=== PATIENT | female | born 1970 | race Caucasian/White ===

== ENCOUNTER 2016-07-31 20:36 | Inpatient (IN) | payer SELFPAY ==
[~2016-07-31] VITALS: Ht 162.6 cm; Wt 85.0 kg
[2016-07-31] MEDS ORDERED: LISD50CA PO (20:45)
[2016-07-31] MEDS ORDERED: ALPR-392 MT (20:46)
[2016-07-31 21:02] LABS: BASOPHILS % 0.3 % (0.0-2.0); EOSINOPHILS % 0.7 % (0.0-5.0); HEMATOCRIT. 50.5 % (36.0-48.0); HEMOGLOBIN. 16.8 g/dL (12.0-16.0); LYMPHOCYTES % 16.3 % (20.0-50.0); MEAN CORPUSCULAR HEMOGLOBIN 29.1 pg (28.0-32.0); MEAN CORPUSCULAR VOLUME 87.5 fL (81.0-99.0); MEAN PLATELET VOLUME 8.2 fl (7.4-10.4); NEUTROPHILS % 78.7 % (40.0-76.0); PLATELET 231 x1000/uL (130-400); RED BLOOD CELL COUNT 5.77 mill/uL (4.2-5.4); RED CELL DISTRIBUTION WIDTH 13.7 % (11.6-14.6)
[2016-07-31 21:10] LABS: PROTHROMBIN TIME 10.7 sec
[2016-07-31 21:12] LABS: CARBON DIOXIDE 23 mEq/L (21-32); CHLORIDE 103 mEq/L (98-107)
[2016-07-31 21:14] LABS: ETHANOL BLOOD < 10 mg/dL
[2016-07-31] MEDS ORDERED: ONDANSETRON HCL 4MG/2ML VIAL IV ONE (21:15)
[2016-07-31 21:19] LABS: TROPONIN I 0.28 ng/mL (0.00-0.04)
[2016-07-31] MEDS ORDERED: SODIUM CHLORIDE 0.9% 1,000 ML IV ONE (21:30)
[2016-07-31 21:54] LABS: BG BASE EXCESS -6.5 mmol/L (-2.0-2.0); BG CARBOXYHEMOGLOBIN 0.1 % (0.5-1.5); BG DEOXYHEMOGLOBIN 1.9 % (0.0-5.0); BG FRACTION INSPIRED OXYGEN 36; BG HCO3 ACT 17.8 mmol/L (22.0-26.0); BG METHEMOGLOBIN 0.2 % (0.0-1.5); BG OXYGEN SATURATION 98.1 % (92.0-98.5); BG OXYHEMOGLOBIN 97.8 % (94.0-97.0); BG PCO2 32.3 mmHg (35.0-45.0); BG PH 7.358 (7.350-7.450); BG PO2 131.1 mmHg (75.0-100.0); BG SAMPLE SITE RIGHT BRACHIAL; BG TOTAL HEMOGLOBIN 15.1 g/dL (12.0-18.0); BG VENT MODE NASAL CANNULA
[2016-07-31] MEDS ORDERED: KETOROLAC 30MG/ML VIAL IV ONE (23:45)
[2016-07-31] MEDS ORDERED: SODIUM CHLORIDE 0.9% 500 ML IV ONE (23:45)
[2016-08-01] VITALS (29 sets, daily range): BP systolic 27–162; BP diastolic 18–133
[2016-08-01] MEDS ORDERED: HEPARIN 5000 UNITS/ML VIAL IV ONE
[2016-08-01] MEDS ORDERED: MORPHINE SULFATE 4 MG/ML CPJ (NOT FOR IM USE) IV STA (00:15)
[2016-08-01] MEDS ORDERED: SODIUM CHLORIDE 0.9% 1,000 ML IV ONE (00:15)
[2016-08-01] MEDS ORDERED: HEPARIN 25,000 UNITS PREMIX 500 ML IV SCH ×3 (00:30→08:45)
[2016-08-01 01:30] LABS: INR 1.3; PROTHROMBIN TIME 13.2 sec
[2016-08-01 01:38] LABS: *BARBITURATES SCREEN URINE NEGATIVE (NEGATIVE); *BENZODIAZEPINES SCREEN URINE NEGATIVE (NEGATIVE); *COCAINE SCREEN URINE NEGATIVE (NEGATIVE); CANNABINOID URINE SCREEN NEGATIVE (NEGATIVE); METHADONE URINE SCREEN NEGATIVE (NEGATIVE); OPIATES URINE SCREEN NEGATIVE (NEGATIVE); PHENCYCLIDINE URINE SCREEN NEGATIVE (NEGATIVE)
[2016-08-01 01:43] LABS: PARTIAL THROMBOPLASTIN TIME 102.5 sec (24.0-34.0)
[2016-08-01 02:58] LABS: *AMPHETAMINES SCREEN URINE PRESUMTIVE POSITIVE (NEGATIVE)
[2016-08-01] MEDS ORDERED: ONDANSETRON HCL 4MG/2ML VIAL IV PRN (03:00)
[2016-08-01] MEDS ORDERED: DEXT 5%/0.45% NACL 1,000 ML IV SCH (03:00)
[2016-08-01] MEDS ORDERED: ACETAMINOPHEN 325MG TABLET PO PRN (03:00)
[2016-08-01] MEDS: MORPHINE SULFATE 2 MG/ML CPJ (NOT FOR IM USE) IV PRN ×2 (03:26→07:44)
[2016-08-01 04:00] LABS: INR 1.3; PARTIAL THROMBOPLASTIN TIME 57.5 sec (24.0-34.0)
[2016-08-01] MEDS: IPRATROPIUM/ALBUTEROL 0.5-3(2.5)MG/3ML NEB HHN SCH ×2 (04:19→09:05)
[2016-08-01] MEDS ORDERED: SODIUM CHLORIDE 0.9% 1000ML BAG (SEPSIS BOLUS) IV NR (05:15)
[2016-08-01 05:30] LABS: HEMOGLOBIN 16.3 g/dL (12.0-16.0); MEAN CORPUSCULAR HEMOGLOBIN 29.6 pg (28.0-32.0); MEAN CORPUSCULAR VOLUME 90.6 fL (81.0-99.0); PLATELET 136 x1000/uL (130-400); RED BLOOD CELL COUNT 5.52 mill/uL (4.2-5.4); RED CELL DISTRIBUTION WIDTH 14.2 % (11.6-14.6)
[2016-08-01] MEDS ORDERED: CEFTRIAXONE 1 G PREMIX 50 ML IV SCH ×2 (06:00→08:30)
[2016-08-01] MEDS ORDERED: LIDOCAINE HCL/PF 1% 2ML VIAL ONE (06:48)
[2016-08-01 07:43] LABS: BG BASE EXCESS -21.2 mmol/L (-2.0-2.0); BG CARBOXYHEMOGLOBIN 0.3 % (0.5-1.5); BG DEOXYHEMOGLOBIN 7.8 % (0.0-5.0); BG HCO3 ACT 7.6 mmol/L (22.0-26.0); BG METHEMOGLOBIN 0.3 % (0.0-1.5); BG OXYGEN SATURATION 92.2 % (92.0-98.5); BG OXYHEMOGLOBIN 91.6 % (94.0-97.0); BG PCO2 27.1 mmHg (35.0-45.0); BG PH 7.065 (7.350-7.450); BG PO2 87.3 mmHg (75.0-100.0); BG SAMPLE SITE RIGHT FEMORAL; BG TOTAL HEMOGLOBIN 18.3 g/dL (12.0-18.0); BG VENT MODE NASAL CANNULA
[2016-08-01] MEDS ORDERED: SODIUM BICARBONATE 8.4% 1 MEQ/ML 50ML SYR IV ONE (08:00)
[2016-08-01] MEDS ORDERED: SODIUM BICARBONATE 8.4% 1 MEQ/ML 50ML SYR IV NR ×2 (08:12→08:13)
[2016-08-01] MEDS ORDERED: NOREPINEPHRINE 8 MG in DEXT 5% WATER 242 ML IV PRN (08:15)
[2016-08-01] MEDS ORDERED: SODIUM CHLORIDE 0.9% 500 ML IV ONE (08:30)
[2016-08-01 08:44] LABS: BG CARBOXYHEMOGLOBIN 0.3 % (0.5-1.5); BG DEOXYHEMOGLOBIN 4.1 % (0.0-5.0); BG HCO3 ACT 12.6 mmol/L (22.0-26.0); BG METHEMOGLOBIN 0.3 % (0.0-1.5); BG OXYGEN SATURATION 95.9 % (92.0-98.5); BG OXYHEMOGLOBIN 95.3 % (94.0-97.0); BG PCO2 52.3 mmHg (35.0-45.0); BG PH 6.999 (7.350-7.450); BG PO2 117.3 mmHg (75.0-100.0); BG SAMPLE SITE RIGHT BRACHIAL; BG TIDAL VOLUME(mL) 500 mL; BG TOTAL HEMOGLOBIN 15.9 g/dL (12.0-18.0); BG VENT MODE VENT - A/C; BG VENT RATE 12 set
[2016-08-01] MEDS ORDERED: HEPARIN BOLUS PRN aPTT <36 IV (08:45)
[2016-08-01] MEDS ORDERED: HEPARIN BOLUS PRN aPTT 37-44 IV (08:45)
[2016-08-01] MEDS ORDERED: MIDAZOLAM HCL 50 MG in DEXTROSE 5% WATER 40 ML IV PRN (08:45)
[2016-08-01] MEDS ORDERED: LORAZEPAM 2MG/ML CPJ ONE (08:59)
[2016-08-01] MEDS ORDERED: SODIUM BICARBONATE 7.5% 0.9 MEQ/ML 50ML SYR IV ONE ×2 (09:00)
[2016-08-01] MEDS ORDERED: SUCCINYLCHOLINE CHLORIDE 200MG/10ML VIAL IV ONE (09:00)
[2016-08-01] MEDS ORDERED: EPINEPHRINE 0.1MG/ML (1:10,000) 10ML SYR ONE ×3 (09:00)
[2016-08-01] MEDS ORDERED: LORAZEPAM 2MG/ML CPJ IV PRN (09:00)
[2016-08-01] MEDS ORDERED: ETOMIDATE 2MG/ML 10ML VIAL IV ONE (09:00)
[2016-08-01] MEDS ORDERED: DOPAMINE 400MG IN DEXT 5% 250ML PREMIX IV ONE (09:00)
[2016-08-01] MEDS ORDERED: PANTOPRAZOLE SODIUM 40 MG/VIAL IV SCH (09:00)
[2016-08-01] MEDS ORDERED: ATROPINE SULFATE 1MG/10ML SYR ONE (09:00)
[2016-08-01] MEDS ORDERED: SODIUM BICARBONATE 100 MEQ in DEXT 5%/0.45% NACL 1000ML 1,000 ML IV SCH (09:30)
[2016-08-01] MEDS ORDERED: DEXT 5%/0.9% NACL 1,000 ML IV SCH (10:00)
[2016-08-01] MEDS ORDERED: IOHEXOL-350 100 ML BOTTLE ONE (10:00)
[2016-08-01] MEDS ORDERED: PHENYLEPHRINE 40 MG in DEXT 5% WATER 246 ML IV PRN (10:00)
[2016-08-01] MEDS ORDERED: SODIUM CHLORIDE 0.9% 10ML VIAL ONE (10:00)
[2016-08-01] MEDS ORDERED: EPINEPHRINE 4 MG in SODIUM CHLORIDE 0.9% 246 ML IV PRN (10:15)
[2016-08-01] MEDS ORDERED: DOPAMINE 400MG PREMIX 250 ML IV PRN (10:15)
[2016-08-01 10:32] LABS: INR 2.2
[2016-08-01 11:32] LABS: PARTIAL THROMBOPLASTIN TIME > 200.0 sec (24.0-34.0)
[2016-08-01] MEDS ORDERED: SODIUM BICARBONATE 100 MEQ in DEXT 5%/0.9% NACL 1,000 ML IV SCH (14:00)
== END 2016-08-01 10:30 | disposition expired | DRG 134 ==
LOC: ER 20:53 → MICUSO 08-01 00:40 → ENRESERV 08-01 01:05
PROVIDERS: ADMIT Internal Medicine Geriatric Medicine; ATTEND Internal Medicine Geriatric Medicine
PROC: 5A1935Z Respiratory Ventilation, Less than 24 Consecutive Hours (ICD-10-PCS; principal; 2016-08-01)
PROC: 0BH17EZ Insertion of Endotracheal Airway into Trachea, Via Natural or Artificial Opening (ICD-10-PCS; 2016-08-01)
PROC: 02HV33Z Insertion of Infusion Device into Superior Vena Cava, Percutaneous Approach (ICD-10-PCS; 2016-08-01)
PROC: B548ZZA Ultrasonography of Superior Vena Cava, Guidance (ICD-10-PCS; 2016-08-01)
DX: I26.99 Other pulmonary embolism without acute cor pulmonale (principal); J96.00 Acute respiratory failure, unspecified whether with hypoxia or hypercapnia; I46.9 Cardiac arrest, cause unspecified; N17.9 Acute kidney failure, unspecified; I95.9 Hypotension, unspecified; E87.2 Acidosis; D72.829 Elevated white blood cell count, unspecified; F41.1 Generalized anxiety disorder; F90.9 Attention-deficit hyperactivity disorder, unspecified type; R00.0 Tachycardia, unspecified; R73.9 Hyperglycemia, unspecified; R74.8 Abnormal levels of other serum enzymes
CPT/HCPCS: 31500; 36415; 36569; 36600; 71010; 71275; 74176; 76937; 80048; 80053; 80305; 82375; 82805; 82962; 83036; 83735; 83880; 84443; 84484; 85025; 85027; 85384; 85610; 85730; 87040; 93005; 93306; 94002; 94640; 94664; 96361; 96374; 96375; 99291; A4216; C1725; C9113; G0482; J0171; J0330; J0461; J0696; J1265; J1644; J1885; J2060; J2250; J2270; J2370; J2405; J3490; J7030; J7040; J7042; J7050; J7060; J7620; Q9967; A4315